=== PATIENT | female | born 2000 | race Caucasian/White ===

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

== ENCOUNTER → 2020-04-08 13:24 | Outpatient (CLI) | payer BC, SELFPAY ==
[2020-04-10 15:05] LABS: Covid-19 Nasal PCR Sendout Lex Positive
== END ==
PROVIDERS: PCP Family Medicine; Visit Provider Nurse Practitioner
DX: Z20.828 Contact with and (suspected) exposure to other viral communicable diseases (principal); U07.1 COVID-19
CPT/HCPCS: U0004

== ENCOUNTER → 2020-04-20 14:07 | Outpatient (CLI) | payer BC, SELFPAY | PROVIDERS: PCP Nurse Practitioner; Visit Provider Nurse Practitioner | DX: U07.1 COVID-19 (principal) ==

== ENCOUNTER → 2020-04-22 15:17 | Outpatient (CLI) | payer BC, SELFPAY ==
[2020-04-22 19:47] LABS: Coronavirus 19 IgG Antibody Positive (Negative); Coronavirus 19 IgM Antibody Positive (Negative)
== END ==
PROVIDERS: Visit Provider Nurse Practitioner
DX: Z86.19 Personal history of other infectious and parasitic diseases (principal); Z03.818 Encounter for observation for suspected exposure to other biological agents ruled out
CPT/HCPCS: 36415; 86328

== ENCOUNTER → 2021-07-04 13:56 | Outpatient (CLI) | payer BC, SELFPAY ==
[2021-07-07 12:35] LABS: Neisseria gonorrhoeae, NAA Negative (Negative)
== END ==
PROVIDERS: Visit Provider Obstetrics & Gynecology
DX: N89.8 Other specified noninflammatory disorders of vagina (principal)
CPT/HCPCS: 87491; 87591